=== PATIENT | female | born 2000 | race African-American/Black ===

== ENCOUNTER 2024-03-07 01:45 | Emergency (ER) | payer OTHER, SELFPAY ==
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
[2024-03-07 01:45] VITALS: BP 130/90; PULSE 86; RESP 18; TEMP 36.6; O2SAT 100
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
--- NOTE | 2024-03-07 02:15 | PC.NURSE ---
patient returned to room. taken to ct via wheel chair
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
[2024-03-07] MEDS: IBUPROFEN 400 MG TABLET PO (02:35)
[2024-03-07] MEDS: LIDO 1%/EPINEPHRINE 1:100,000 20 ML VIAL INFILTRATE (02:36)
--- NOTE | 2024-03-07 02:37 | PC.NURSE ---
[facility] Officer talking with patient in private. Sister is sitting with the children in room 1
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
--- NOTE | 2024-03-07 03:44 | PC.NURSE ---
non adherent dressing placed to wound repair to right upper arm. covered with coban to help keep dressing in place. bandaid placed to laceration to right lower arm. patient then ambulated to the bathroom to clean up her arm . children in room 1 with patients sister
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
--- NOTE | 2024-03-07 04:05 | PC.NURSE ---
waiting on imaging results
--- NOTE | 2024-03-07 04:12 | PC.NURSE ---
Dr Ibrahim at the bedside
[2024-03-07 04:16] VITALS: BP 119/87; PULSE 85; RESP 18; O2SAT 100
== END 2024-03-07 04:18 | disposition home or self-care (01) ==
PROVIDERS: Emergency Provider Family Medicine
DX: S51.811A Laceration without foreign body of right forearm, initial encounter (principal); S09.90XA Unspecified injury of head, initial encounter; Y04.2XXA Assault by strike against or bumped into by another person, initial encounter
CPT/HCPCS: 12004; 70450; 72125; 73090; 73590; 99284; A9270